=== PATIENT | male | born 1995 | race Caucasian/White ===

== ENCOUNTER 2023-04-18 11:02 | Outpatient (CLI) | payer MEDICARE, MEDICAID ==
[~2023-04-18] VITALS: Ht 182.9 cm; Wt 101.4 kg
[2023-04-18] MEDS ORDERED: Acetaminophen 500 MG TAB PO ONE (11:45)
[2023-04-18] MEDS ORDERED: Immune Globulin (Gammagard) 20 G/200 ML IV SOLN IV ONE (11:45)
[2023-04-18] MEDS ORDERED: Immune Globulin (Gammagard) 5 G/50 ML IV SOLN IV ONE (11:45)
[2023-04-18 12:33] VITALS: BP 124/78; PULSE 98
[2023-04-18 13:03] LABS: HEMATOCRIT 40.2 % (42.0-52.0); HEMOGLOBIN 13.6 g/dl (13.5-18.0); MEAN CELL VOLUME 93 fl (80.0-100.0); MEAN CORPUSCULAR HEMOGLOBIN 32 pg (27-31); MEAN CORPUSCULAR HGB CONC 34 g/dl (33.0-37.0); MEAN PLATELET VOLUME 9.2 fl (7.4-10.4); RED BLOOD COUNT 4.32 M/mm3 (4.20-5.60); REDCELL DISTRIBUTION WIDTH-CV 13.2 % (11.5-14.5)
[2023-04-18 13:04] LABS: ALBUMIN 3.2 gm/dL (3.5-5.0); BILIRUBIN,TOTAL 0.5 mg/dL (0.2-1.2); CALCIUM 9.3 mg/dL (8.4-10.2); CREATININE, serum 0.96 mg/dL (0.72-1.25); POTASSIUM 3.8 mmol/L (3.5-4.5); TOTAL PROTEIN 6.1 gm/dL (6.2-8.1)
[2023-04-18 13:30] VITALS: BP 114/70; PULSE 90
[2023-04-18 13:52] LABS: BAND 2 % (0-10); LYMPHOCYTE 29 % (20.0-51.0); METAMYELOCYTE 1 % (0-0); NEUTROPHILS 61 % (42.0-75.2)
[2023-04-18 13:53] LABS: HYPOCHROMIA 1+
[2023-04-18 13:54] LABS: PLATELET ESTIMATE NORMAL (NORMAL); TEAR DROP CELLS 1+
[2023-04-18 13:56] LABS: PLATELET COUNT 197 K/mm3 (130-400)
[2023-04-18 13:58] LABS: ANISOCYTOSIS 1+
[2023-04-18 14:00] VITALS: BP 108/67; PULSE 78
[2023-04-18 14:30] VITALS: BP 113/65; PULSE 70
[2023-04-18 15:00] VITALS: BP 133/81; PULSE 80
[2023-04-18 15:30] VITALS: BP 131/82; PULSE 74
[2023-04-18] MEDS ORDERED: TYLENOL 500MG500 MG PO (15:58)
[2023-04-18] MEDS ORDERED: ALEVE PM PO (15:58)
[2023-04-18] MEDS ORDERED: ABILIFY 10MG TA10 MG PO (15:58)
[2023-04-18] MEDS ORDERED: ZITHROMAX500 M2 PO (15:59)
[2023-04-18] MEDS ORDERED: CHLOR-TABS4 MG PO (16:00)
[2023-04-18] MEDS ORDERED: TAGAMET300 MG PO (16:01)
[2023-04-18] MEDS ORDERED: CATAPRES 0.1MG0.1 MG PO (16:01)
[2023-04-18] MEDS ORDERED: DEPAKOTE500 MG PO (16:02)
[2023-04-18] MEDS ORDERED: ATIVAN 1MG T1 MG/TAB PO (16:03)
[2023-04-18] MEDS ORDERED: LINZESS290CAP PO (16:03)
[2023-04-18] MEDS ORDERED: SINGULAIR 110 MG/TAB PO (16:04)
[2023-04-18] MEDS ORDERED: MELATONIN5 M1 SL (16:04)
[2023-04-18] MEDS ORDERED: RITALIN 5MG5 MG/TAB PO (16:05)
[2023-04-18] MEDS ORDERED: ZOLOFT 100MG100 MG PO (16:06)
[2023-04-18] MEDS ORDERED: VITAMIN D31000 I1 PO (16:07)
[2023-04-18] MEDS ORDERED: RESTORIL 1515 MG/CAP PO (16:07)
--- NOTE | 2023-04-18 16:08 | NUR ---
pt tolerated IVIG infusion well. vs remained within normal limits. port was heparinized and deaccessed. next appointment scheduled.
== END 2023-04-18 16:10 | disposition home or self-care (01) ==
LOC: EUO 11:02
PROVIDERS: Emergency Medicine
DX: D83.9 Common variable immunodeficiency, unspecified (principal); Z79.899 Other long term (current) drug therapy
CPT/HCPCS: J1569; J1644

== ENCOUNTER 2023-05-16 11:06 | Outpatient (CLI) | payer MEDICARE, MEDICAID ==
[~2023-05-16] VITALS: Ht 182.9 cm; Wt 100.0 kg
[~2023-05-16 11:06] MED LIST: ABILIFY 10MG TA10 MG PO; ALEVE PM PO; ATIVAN 1MG T1 MG/TAB PO; CATAPRES 0.1MG0.1 MG PO; CHLOR-TABS4 MG PO; DEPAKOTE500 MG PO; LINZESS290CAP PO; MELATONIN5 M1 SL; RESTORIL 1515 MG/CAP PO; RITALIN 5MG5 MG/TAB PO; SINGULAIR 110 MG/TAB PO; TAGAMET300 MG PO; TYLENOL 500MG500 MG PO; VITAMIN D31000 I1 PO; ZITHROMAX500 M2 PO; ZOLOFT 100MG100 MG PO
[2023-05-16] MEDS ORDERED: Immune Globulin (Gammagard) 5 G/50 ML IV SOLN IV SCH (11:30)
[2023-05-16] MEDS ORDERED: Acetaminophen 500 MG TAB PO ONE (11:30)
[2023-05-16 12:00] VITALS: BP 145/74; PULSE 128; TEMP 97.6
[2023-05-16] MEDS ORDERED: Immune Globulin (Gammagard) 20 G/200 ML IV SOLN IV SCH (12:00)
[2023-05-16 12:30] VITALS: BP 162/94; PULSE 130
[2023-05-16 13:00] VITALS: BP 120/69; PULSE 136
[2023-05-16 13:30] VITALS: BP 107/69; PULSE 149; TEMP 98
[2023-05-16 14:00] VITALS: BP 116/55; PULSE 140
[2023-05-16 14:45] VITALS: BP 100/58; PULSE 140; TEMP 98.7
== END 2023-05-16 15:30 ==
LOC: EUO 11:06
DX: D83.9 Common variable immunodeficiency, unspecified (principal); Z79.899 Other long term (current) drug therapy
CPT/HCPCS: J1569; J1644

== ENCOUNTER 2023-07-11 10:57 | Outpatient (CLI) | payer MEDICARE, MEDICAID ==
[~2023-07-11] VITALS: Ht 182.9 cm; Wt 97.0 kg
[2023-07-11] MEDS ORDERED: Immune Globulin (Gammagard) 20 G/200 ML IV SOLN IV ONE (11:30)
[2023-07-11] MEDS ORDERED: Immune Globulin (Gammagard) 5 G/50 ML IV SOLN IV ONE (11:30)
[2023-07-11] MEDS ORDERED: Acetaminophen 500 MG TAB PO ONE (11:30)
[2023-07-11 12:00] VITALS: BP 119/65; PULSE 114; TEMP 97.8
[2023-07-11 12:13] LABS: MEAN CELL VOLUME 97 fl (80.0-100.0); MEAN CORPUSCULAR HEMOGLOBIN 32 pg (27-31); MEAN CORPUSCULAR HGB CONC 33 g/dl (33.0-37.0); MEAN PLATELET VOLUME 9.1 fl (7.4-10.4); PLATELET COUNT 140 K/mm3 (130-400); RED BLOOD COUNT 3.74 M/mm3 (4.20-5.60); REDCELL DISTRIBUTION WIDTH-CV 15.9 % (11.5-14.5)
[2023-07-11 12:20] LABS: HEMATOCRIT 36.2 % (42.0-52.0)
[2023-07-11 12:27] LABS: ALBUMIN 3.3 g/dL (3.5-5.0); BILIRUBIN,TOTAL 0.5 mg/dL (0.2-1.2); CALCIUM 9.1 mg/dL (8.4-10.2); CREATININE, serum 0.8 mg/dL (0.72-1.25); TOTAL PROTEIN 5.9 g/dl (6.2-8.1)
[2023-07-11 12:30] VITALS: BP 125/75; PULSE 112
[2023-07-11 12:41] LABS: ANISOCYTOSIS 1+; BAND 4 % (0-10); LYMPHOCYTE 28 % (20.0-51.0); NEUTROPHILS 64 % (42.0-75.2); PLATELET ESTIMATE NORMAL (NORMAL)
[2023-07-11] MEDS ORDERED: hydrOXYzine HCl 25 MG TAB PO PRN (12:45)
[2023-07-11] MEDS ORDERED: cloNIDine 0.1 MG TAB PO SCH (12:45)
[2023-07-11] MEDS ORDERED: LORazepam 1 MG TAB PO SCH (12:45)
[2023-07-11 13:00] VITALS: BP 135/71; PULSE 113
[2023-07-11 13:30] VITALS: BP 135/78; PULSE 112
[2023-07-11 14:00] VITALS: BP 135/74; PULSE 108
[2023-07-11 14:30] VITALS: BP 135/69; PULSE 110
[2023-07-11] MEDS ORDERED: DEPAKOTE500 MG PO (14:50)
[2023-07-11] MEDS ORDERED: RITALIN 5MG5 MG/TAB PO (14:52)
[2023-07-11] MEDS ORDERED: EXCEDRIN TENSIO1 CAP PO (14:54)
[2023-07-11] MEDS ORDERED: DELSYM30 MG/5 ML PO (14:54)
[2023-07-11] MEDS ORDERED: ATARAX50 MG PO (14:55)
[2023-07-11] MEDS ORDERED: LIDO3%CREAM TP (14:56)
[2023-07-11] MEDS ORDERED: CLARITIN 1010 MG/TAB PO (14:56)
[2023-07-11] MEDS ORDERED: PEPTO BISM262 MG/15 PO (14:57)
[2023-07-11] MEDS ORDERED: PEPCID 20MG TAB20 MG PO (14:57)
[2023-07-11] MEDS ORDERED: MIRALAX PA17 GM/Dose PO (14:58)
[2023-07-11] MEDS ORDERED: MYLICON 8080 MG/TAB. PO (14:58)
[2023-07-11] MEDS ORDERED: TUMS500 MG (14:59)
[2023-07-11] MEDS ORDERED: IMITREX100 MG PO (14:59)
[2023-07-11] MEDS ORDERED: ZOFRAN 4MG T4 MG/TAB PO (14:59)
[2023-07-11] MEDS ORDERED: NASAL MOISTURIZ45 ML NS (15:00)
== END 2023-07-11 14:50 | disposition home or self-care (01) ==
LOC: EUO 10:57
PROVIDERS: Emergency Medicine
DX: D83.9 Common variable immunodeficiency, unspecified (principal); Z79.899 Other long term (current) drug therapy
CPT/HCPCS: J1569; J1644

== ENCOUNTER 2023-09-07 12:45 | Outpatient (RCR) | payer MEDICARE, MEDICAID ==
[~2023-09-07 12:45] MED LIST changes: +ATARAX50 MG PO; +CLARITIN 1010 MG/TAB PO; +DELSYM30 MG/5 ML PO; +EXCEDRIN TENSIO1 CAP PO; +IMITREX100 MG PO; +LIDO3%CREAM TP; +MIRALAX PA17 GM/Dose PO; +MYLICON 8080 MG/TAB. PO; +NASAL MOISTURIZ45 ML NS; +PEPCID 20MG TAB20 MG PO; +PEPTO BISM262 MG/15 PO; +TUMS500 MG; +ZOFRAN 4MG T4 MG/TAB PO
[2023-10-03] MEDS ORDERED: NORVASC 5MG5 MG/TAB PO (11:24)
[2023-10-03] MEDS ORDERED: OMNICEF 300MG300 MG PO (12:12)
[2023-10-03] MEDS ORDERED: SOLU-MEDRO125 MG/21 IJ (12:12)
== END 2023-09-09 | disposition home or self-care (01) ==
LOC: WSPT
DX: M67.01 Short Achilles tendon (acquired), right ankle (principal)

== ENCOUNTER 2023-10-31 10:51 | Outpatient (CLI) | payer MEDICARE, MEDICAID ==
[~2023-10-31] VITALS: Ht 182.9 cm; Wt 87.6 kg
[~2023-10-31 10:51] MED LIST changes: +NORVASC 5MG5 MG/TAB PO; +OMNICEF 300MG300 MG PO; +SOLU-MEDRO125 MG/21 IJ
[2023-10-31] MEDS ORDERED: VITAMIN B COMPL1 SGL PO (11:05)
[2023-10-31] MEDS ORDERED: BELSOMRA20 MG PO (11:06)
[2023-10-31] MEDS ORDERED: LEVAQUIN 750MG750 M1 PO (11:06)
[2023-10-31] MEDS ORDERED: Acetaminophen 500 MG TAB PO ONE (11:15)
[2023-10-31] MEDS ORDERED: hydrOXYzine HCl 25 MG TAB PO PRN (11:15)
[2023-10-31] MEDS ORDERED: Immune Globulin (Gammagard) 5 G/50 ML IV SOLN IV ONE (11:15)
[2023-10-31] MEDS ORDERED: Immune Globulin (Gammagard) 20 G/200 ML IV SOLN IV ONE (11:15)
[2023-10-31 11:28] VITALS: BP 126/75; PULSE 100; TEMP 98.5
[2023-10-31 12:00] VITALS: BP 103/59; PULSE 108
[2023-10-31 12:00] LABS: ALBUMIN 3.7 g/dL (3.5-5.0); BILIRUBIN,TOTAL 0.6 mg/dL (0.2-1.2); CALCIUM 9.3 mg/dL (8.4-10.2); CREATININE, serum 0.7 mg/dL (0.72-1.25); HEMOGLOBIN 11.6 g/dl (13.5-18.0); MEAN CELL VOLUME 96 fl (80.0-100.0); MEAN CORPUSCULAR HEMOGLOBIN 33 pg (27-31); MEAN CORPUSCULAR HGB CONC 34 g/dl (33.0-37.0); MEAN PLATELET VOLUME 10.2 fl (7.4-10.4); PLATELET COUNT 249 K/mm3 (130-400); POTASSIUM 3.9 mEq/L (3.5-4.5); RED BLOOD COUNT 3.55 M/mm3 (4.20-5.60); REDCELL DISTRIBUTION WIDTH-CV 13.3 % (11.5-14.5); TOTAL PROTEIN 6.3 g/dl (6.2-8.1)
[2023-10-31 12:17] LABS: HEMATOCRIT 34.2 % (42.0-52.0)
[2023-10-31 12:30] VITALS: BP 102/54; PULSE 95
[2023-10-31] MEDS ORDERED: LORazepam 1 MG TAB PO SCH (12:45)
[2023-10-31] MEDS ORDERED: cloNIDine 0.1 MG TAB PO SCH (12:45)
[2023-10-31 13:00] VITALS: BP 106/55; PULSE 107
[2023-10-31 13:18] LABS: BAND 1 % (0-10); BASOPHIL 1 % (0-2); LYMPHOCYTE 37 % (20.0-51.0); NEUTROPHILS 53 % (42.0-75.2)
[2023-10-31 13:19] LABS: PLATELET ESTIMATE NORMAL (NORMAL)
[2023-10-31 13:30] VITALS: BP 119/75; PULSE 102
[2023-10-31 14:00] VITALS: BP 130/78; PULSE 97
== END 2023-10-31 14:20 | disposition home or self-care (01) ==
LOC: EUO 10:51
DX: D83.9 Common variable immunodeficiency, unspecified (principal); Z79.899 Other long term (current) drug therapy
CPT/HCPCS: J1569

== ENCOUNTER 2023-11-28 10:58 | Outpatient (CLI) | payer MEDICARE, MEDICAID ==
[2023-11-28] VITALS (10 sets, daily range): BP systolic 100–119; BP diastolic 59–78; PULSE 77–99; TEMP 97.7
[~2023-11-28] VITALS: Ht 182.9 cm; Wt 88.0 kg
[~2023-11-28 10:58] MED LIST changes: +BELSOMRA20 MG PO; +LEVAQUIN 750MG750 M1 PO; +VITAMIN B COMPL1 SGL PO
[2023-11-28] MEDS ORDERED: Immune Globulin (Gammagard) 20 G/200 ML IV SOLN IV ONE (11:15)
[2023-11-28] MEDS ORDERED: Acetaminophen 500 MG TAB PO ONE (11:15)
[2023-11-28] MEDS ORDERED: hydrOXYzine HCl 25 MG TAB PO PRN (11:15)
[2023-11-28] MEDS ORDERED: Immune Globulin (Gammagard) 5 G/50 ML IV SOLN IV ONE (11:15)
[2023-11-28] MEDS ORDERED: cloNIDine 0.1 MG TAB PO SCH (12:45)
[2023-11-28] MEDS ORDERED: LORazepam 1 MG TAB PO SCH (12:45)
[2023-11-28] MEDS ORDERED: Gabapentin 300 MG CAP PO SCH (12:45)
--- NOTE | 2023-11-28 15:11 | NUR ---
PT TOLERATED INFUSION WELL. VS REMAINED WITHIN PT'S NORMAL LIMITS. PORT WAS HEPARINIZED AND DEACCESSED UPON DISCHARGE. PT FREE FROM ACUTE CONCERNS AND COMPLAINTS. PT AMBULATED INDEPENDENTLY TO MAIN LOBBY UPON DISCHARGE. NEXT APPOINTMENT MADE.
== END 2023-11-28 15:12 | disposition home or self-care (01) ==
LOC: EUO 10:58
DX: D83.9 Common variable immunodeficiency, unspecified (principal); Z79.899 Other long term (current) drug therapy
CPT/HCPCS: J1569

== ENCOUNTER 2023-12-11 12:33 | Outpatient (RCR) | payer MEDICARE, MEDICAID | END 2023-12-11 15:00 | disposition home or self-care (01) | LOC: WSPT 12:33 | DX: M67.01 Short Achilles tendon (acquired), right ankle (principal); R29.898 Other symptoms and signs involving the musculoskeletal system; R26.81 Unsteadiness on feet; R53.81 Other malaise ==

== ENCOUNTER 2023-12-26 10:49 | Outpatient (CLI) | payer MEDICARE, MEDICAID ==
[~2023-12-26] VITALS: Ht 182.9 cm; Wt 89.8 kg
[2023-12-26] VITALS (7 sets, daily range): BP systolic 118–139; BP diastolic 54–79; PULSE 70–92; TEMP 98.2–98.7
[2023-12-26] MEDS ORDERED: Immune Globulin (Gammagard) 5 G/50 ML IV SOLN IV SCH (11:15)
[2023-12-26] MEDS ORDERED: hydrOXYzine HCl 25 MG TAB PO PRN (11:15)
[2023-12-26] MEDS ORDERED: Acetaminophen 500 MG TAB PO ONE (11:15)
[2023-12-26] MEDS ORDERED: Immune Globulin (Gammagard) 20 G/200 ML IV SOLN IV SCH (11:30)
[2023-12-26] MEDS ORDERED: LORazepam 1 MG TAB PO SCH (12:45)
[2023-12-26] MEDS ORDERED: Gabapentin 300 MG CAP PO SCH ×2 (12:45)
[2023-12-26] MEDS ORDERED: cloNIDine 0.1 MG TAB PO SCH (12:45)
[2023-12-26] MEDS ORDERED: RITALIN LA20 MG PO (15:52)
[2023-12-26] MEDS ORDERED: NEURONTIN300 MG/CAP PO (15:58)
== END 2023-12-26 14:45 | disposition home or self-care (01) ==
LOC: EUO 10:49
DX: D83.9 Common variable immunodeficiency, unspecified (principal); Z79.899 Other long term (current) drug therapy
CPT/HCPCS: J1569